=== PATIENT | female | born 1975 | race African-American/Black ===

== ENCOUNTER 2016-08-17 16:04 | Emergency (ER) | payer MEDICAID ==
[2016-08-17 16:26] VITALS: BP 151/91; PULSE 82; TEMP 98.6; BMI 39.6
--- NOTE | 2016-08-17 17:50 | EDPRACDOC ---
- General Information Chief Complaint: Sore Throat Stated Complaint: KNOT UNDER CHIN PAINFUL/SOME TROUBLE SWALLOWING Time Seen by Provider: 08/17/16 17:39 Information Source: Patient Home Medications: Home Medications Ciprofloxacin HCl [Cipro] 500 mg PO BID #14 tab 11/09/15 Phenazopyridine HCl [Pyridium] 200 mg PO TID PRN #6 tablet 11/09/15 Acetaminophen with Codeine [TYLENOL WITH CODEINE; [employer] with Codeine] 5 ml PO Q4-6H PRN #120 ml 08/17/16 Ibuprofen 600 mg PO TID #20 tablet 08/17/16 Ondansetron HCl [Zofran] 4 mg PO Q6H PRN #20 tab 08/17/16 Allergies/Adverse Reactions: Allergies Allergy/AdvReac Type Severity Reaction Status Date / Time morphine Allergy Unknown Nausea/Vomi Verified 08/17/16 16:23 ting - History of Present Illness Onset: 2 days HPI: PT PRESENTS TODAY WITH SORE THROAT X 2 DAYS AND TODAY FELT A MASS UNDER HER CHIN THAT IS PAINFUL. DENIES FEVER, KIM, EAR PAIN, CP, SHOB, ABD PAIN, N/V/D. NO APPARENT DISTRESS. Sore Throat Symptoms: Reports: Pain Recent: Reports: None Relevant History of: Reports: None Pain Severity: Reports: Moderate Urinary Output: Normal Oral Intake: Normal Associated Signs and Symptoms: Reports: None ED Past Medical History - History Reviewed Yes Nurses notes reviewed and agree except as marked - Patient Medical History Cardiac History: Reports: Hypertension GI/ History: Reports: Gastroesophageal Reflux Psychological History: Reports: Depression Systemic History: Denies: Cancer Surgical History: Reports: Cholecystectomy. Denies: Hysterectomy - Social Medical History Smoking Status: Never smoker EDM Review of Systems - Review of Systems ROS Negative Except as Marked: Yes All systems reviewed and were negative except as marked Constitutional: No Symptoms Reported Eyes: No Symptoms Reported Ears: No Symptoms Reported Throat: Pain Nose: No Symptoms Reported Respiratory: Cough Cardiovascular: No Symptoms Reported Gastrointestinal: No Symptoms Reported Neurological: No Symptoms Reported Musculoskeletal: No Symptoms Reported Integumentary: No Symptoms Reported Hematologic: Lymphadenopathy - Physical Exam Constitutional: Alert (Awake), No apparent distress Oriented to: Time, Person, Place Last recorded Vital Signs: Last Vital Signs Temp 98.6 F 08/17/16 16:23 Pulse 82 08/17/16 16:23 Resp 20 08/17/16 16:23 BP 151/91 08/17/16 16:23 Pulse Ox 99 08/17/16 16:23 Oxygen Pulse Oxygen Saturation 99 O2 Device Room Air Oxygen Flow Rate Fraction of Inspired Oxygen ( FIO2) - HEENT Head: Normal Eye Exam: Normal Oropharynx: Red Tympanic Membrane: Normal ENT EAC: Normal Nose: No Symptoms Reported Neck: Lymphadenopathy (NOTED SUBMENTAL LYMPH NODE) - Respiratory/Cardiovascular Respiratory: Normal - CTA Cardiovascular: Normal - GI Palpation: Normal Tenderness: Non tender - Musculoskeletal Back: Normal Extremities: Normal - Integumentary Skin: Normal Lymphatics: Adenopathy - Neurologic Cerebellar: Normal Mood Description: Normal Thought: Coherent Perception: Normal - Results Microbiology 08/17/16 16:25 Group A Streptococcus Rapid Screen - Final Throat - Rapid Strep NEGATIVE ("NORMAL" value = "NEGATIVE".) Decision Time to Discharge: 17:50 - Departure Disposition: Home Condition: Good Final Diagnosis: Pharyngitis, Lymphadenopathy Instructions: Pharyngitis (ED) Education/Counseling Given To: Patient Education/Counseling Given Regarding: Diagnosis, Treatment, Follow Up Referrals: Elissa Marquez MD [Primary Care Provider] - One Week Prescriptions: Acetaminophen with Codeine [TYLENOL WITH CODEINE; [employer] with Codeine] 5 ml PO Q4-6H PRN #120 ml PRN Reason: Pain Ibuprofen 600 mg PO TID #20 tablet Ondansetron HCl [Zofran] 4 mg PO Q6H PRN #20 tab PRN Reason: Nausea/Vomiting Additional Instructions: REST AND PLENTY OF FLUIDS. THIS SHOULD RESOLVE IN A FEW DAYS. IF CONDITION WORSENS OR YOU HAVE ANY CONCERNS, FEEL FREE TO RETURN TO ED.
== END 2016-08-17 18:00 | disposition home or self-care (01) ==
LOC: ED 16:04 → EDMC 18:00
DX: J02.9 Acute pharyngitis, unspecified (principal); R59.1 Generalized enlarged lymph nodes
CPT/HCPCS: 87880; 99282